=== PATIENT | male | born 1955 | race Caucasian/White ===

== ENCOUNTER → 2017-08-13 | Outpatient (CLI) | payer BC | END | disposition home or self-care (01) | LOC: RAD 12:03 | PROVIDERS: ATTEND Family Medicine | DX: M79.672 Pain in left foot (principal) ==

== ENCOUNTER 2019-10-29 15:28 | Emergency (ER) | payer BC ==
[~2019-10-29] VITALS: Ht 180.3 cm; Wt 88.8 kg
[2019-10-29] MEDS ORDERED: SODIUM CHLORIDE FLUSH 10ML SYR IVF ONE (16:30)
[2019-10-29 17:15] LABS: BASOPHILS # (AUTO) 0.02 x10^3/uL (0-0.1); BASOPHILS % (AUTO) 0 % (0-1); EOSINOPHILS # (AUTO) 0.15 x10^3/uL (0-0.4); EOSINOPHILS % (AUTO) 2 % (1-7); LYMPHOCYTES # (AUTO) 1.26 x10^3/uL (1-3.4); LYMPHOCYTES % (AUTO) 15 % (22-44); MD NO; MEAN CORPUSCULAR HEMOGLOBIN 31.9 pg (27.5-34.5); MEAN CORPUSCULAR HGB CONC 34.4 g/dL (33.2-36.2); MEAN CORPUSCULAR VOLUME 92.7 fL (81-97); MEAN PLATELET VOLUME 7.5 fL (7.4-10.4); MONOCYTES # (AUTO) 0.64 x10^3/uL (0.2-0.8); MONOCYTES % (AUTO) 8 % (2-9); NEUTROPHILS # (AUTO) 6.18 x10^3/uL (1.8-6.8); NEUTROPHILS % (AUTO) 75 % (42-75); PLATELET COUNT 183 x10^3/uL (130-400); RED BLOOD COUNT 4.78 x10^6/uL (4.38-5.82); RED CELL DISTRIBUTION WIDTH 13.2 % (9.4-14.8)
[2019-10-29 17:22] LABS: CALCIUM 9.1 mg/dL (8.5-10.1); CHLORIDE 105 mmol/L (98-107)
[2019-10-29 17:30] LABS: ALBUMIN 4.1 g/dL (3.4-5.0); ALKALINE PHOSPHATASE 104 U/L (45-117); ANION GAP 2 mmol/L (5-15); BILIRUBIN,TOTAL 0.5 mg/dL (0.2-1.0); CREATININE 1.21 mg/dL (0.7-1.3); TOTAL PROTEIN 7.2 g/dL (6.4-8.2); TROPONIN I < 0.015 ng/mL (0.000-0.045)
[2019-10-29 17:35] LABS: ALANINE AMINOTRANSFERASE 32 U/L (12-78)
--- NOTE | 2019-10-29 18:28 | NUR ---
RECHECKED VSS AT TRIAGE WHILE PT IS WAITING IN LOBBY STABLE
--- NOTE | 2019-10-29 20:13 | NUR ---
pt called to room from lobby
--- NOTE | 2019-10-29 20:32 | NUR ---
Patient presents to ER c/o left neck pain radiating into arm. Patient states the pain started last night and appeared to be resolved this morning, but came back after work today. Patient denies nausea, numbness, or tingling. Denies difficulty swallowing. No tracheal deviation noted. Patient has full range of motion. Patient is in NAD. Respirations even and unlabored.
[2019-10-29] MEDS ORDERED: OMNIPAQUE 350 MG/ML, 100ML BOTTLE ONE (21:30)
[2019-10-29 23:05] VITALS: BP 149/89
--- NOTE | 2019-10-29 23:30 | NUR ---
Patient/Caregiver given discharge instructions and they have confirmed that they understand the instructions. Patient ambulatory with steady gait.
== END 2019-10-29 23:31 | disposition home or self-care (01) ==
LOC: ED 23:20
DX: M54.2 Cervicalgia (principal); M79.602 Pain in left arm; I10 Essential (primary) hypertension; E78.00 Pure hypercholesterolemia, unspecified
CPT/HCPCS: 36415; 71045; 71275; 80053; 84484; 85025; 93005; 99284; Q9967

== ENCOUNTER 2019-11-19 14:43 | Inpatient (IN) | payer BC ==
[~2019-11-19] VITALS: Ht 180.3 cm; Wt 90.3 kg
--- NOTE | 2019-11-19 15:15 | NUR ---
LATE NOTE ENTRY FOR 1444 DUE TO PT CARE: Pt presents to ED by EMS from home with c/o LUQ abdominal pain (03/05) with sensation to have a bowel movement but is unable to. Last BM was approximately two days ago. Pain is described as sharp and is radiating to left neck and left scapula and is tender upon palpation. Pt has no abdominal distension. Pt received 150 mcg of Fentanyl and 4 mg of Zofran prior to arrival to ED. Pt denies n/v/d, cp, sob, syncope, or diaphoresis. EDRN performed EKG at bedside. Pt connected to electronic device monitor, NIBP cuff, and continous pulse ox monitor. Call light within reach. NADN. No needs expressed at this time.
[2019-11-19] MEDS ORDERED: SODIUM CHLORIDE FLUSH 10ML SYR IVF ONE (15:30)
[2019-11-19 15:46] LABS: ALANINE AMINOTRANSFERASE 32 U/L (12-78); ALBUMIN 3.8 g/dL (3.4-5.0); ANION GAP 2 mmol/L (5-15); CALCIUM 8.3 mg/dL (8.5-10.1); CHLORIDE 104 mmol/L (98-107); CREATININE 0.96 mg/dL (0.7-1.3)
[2019-11-19 15:51] LABS: ALKALINE PHOSPHATASE 89 U/L (45-117); BILIRUBIN,TOTAL 0.6 mg/dL (0.2-1.0); TOTAL PROTEIN 6.8 g/dL (6.4-8.2); TROPONIN I < 0.015 ng/mL (0.000-0.045)
--- NOTE | 2019-11-19 16:13 | NUR ---
Pt transported on [facility] from ED to CT.
[2019-11-19 16:18] LABS: BASOPHILS # (AUTO) 0.01 x10^3/uL (0-0.1); BASOPHILS % (AUTO) 0 % (0-1); EOSINOPHILS # (AUTO) 0.01 x10^3/uL (0-0.4); EOSINOPHILS % (AUTO) 0 % (1-7); LYMPHOCYTES # (AUTO) 0.62 x10^3/uL (1-3.4); LYMPHOCYTES % (AUTO) 7 % (22-44); MD NO; MEAN CORPUSCULAR HEMOGLOBIN 31.2 pg (27.5-34.5); MEAN CORPUSCULAR HGB CONC 33.8 g/dL (33.2-36.2); MEAN CORPUSCULAR VOLUME 92.3 fL (81-97); MEAN PLATELET VOLUME 7.6 fL (7.4-10.4); MONOCYTES # (AUTO) 0.56 x10^3/uL (0.2-0.8); MONOCYTES % (AUTO) 7 % (2-9); NEUTROPHILS # (AUTO) 7.29 x10^3/uL (1.8-6.8); NEUTROPHILS % (AUTO) 86 % (42-75); PLATELET COUNT 187 x10^3/uL (130-400); RED CELL DISTRIBUTION WIDTH 12.6 % (9.4-14.8)
[2019-11-19] MEDS ORDERED: OMNIPAQUE 350 MG/ML, 100ML BOTTLE ONE (16:26)
--- NOTE | 2019-11-19 16:27 | NUR ---
Pt back to room from CT. Pt last ate or drank at 11:45 today.
[2019-11-19] MEDS ORDERED: LOSA100T14 PO ×2 (16:36→21:01)
[2019-11-19] MEDS ORDERED: SUMA50TA4 PO (16:36)
[2019-11-19] MEDS ORDERED: Vitamin D3 PO (16:36)
[2019-11-19] MEDS ORDERED: HYDR-3241 PO (16:36)
[2019-11-19] MEDS ORDERED: PROM25TA10 PO (16:36)
[2019-11-19] MEDS ORDERED: ATOR20TA86 PO (16:36)
[2019-11-19] MEDS ORDERED: PIPERACILLIN/TAZO/PMX 3.375GM 50 ML ONE (16:41)
[2019-11-19] MEDS ORDERED: MORPHINE SULFATE 4 MG/ML, 1ML ONE (16:41)
[2019-11-19] MEDS ORDERED: SODIUM CHLORIDE 0.9% 1,000 ML IV ONE (16:59)
[2019-11-19] MEDS ORDERED: PIPERACILLIN/TAZO/PMX 3.375GM 50 ML IVPB ONE (17:00)
[2019-11-19] MEDS ORDERED: FAMOTIDINE 20 MG/2 ML ONE (17:00)
[2019-11-19] MEDS ORDERED: MORPHINE SULFATE 4 MG/ML, 1ML IVPush PRN (17:00)
--- NOTE | 2019-11-19 17:33 | NUR ---
Provided report to OR. All questions answered. OR tech to come transfer pt from ED to OR "soon".
--- NOTE | 2019-11-19 17:47 | NUR ---
OR staff at bedside taking patient to surgery. NADN. No needs expressed. Pt transfering to OR from ED and leving with all personal belongings.
[2019-11-19] MEDS ORDERED: EPINEPHRINE 1 MG/ML, 1ML ONE (18:25)
[2019-11-19] MEDS ORDERED: BUPIVACAINE/PF 0.5% ONE (18:25)
[2019-11-19] MEDS ORDERED: EPHEDRINE 50 MG/ML, 1ML ONE (19:07)
[2019-11-19] MEDS ORDERED: FENTANYL PF 250 MCG/5ML ONE (19:07)
[2019-11-19] MEDS ORDERED: ONDANSETRON 2MG/ML, 2ML ONE (20:02)
[2019-11-19] MEDS ORDERED: NEOSTIGMINE 1 MG/ML, 10ML ONE (20:02)
[2019-11-19] MEDS ORDERED: DEXAMETHASONE 4 MG/ML, 1ML ONE (20:02)
[2019-11-19] MEDS ORDERED: CEFAZOLIN 1,000 MG ONE (20:02)
[2019-11-19] MEDS ORDERED: PROPOFOL 10 MG/ML, 20ML ONE (20:02)
[2019-11-19] MEDS ORDERED: GLYCOPYRROLATE 0.2MG/1ML, 5ML ONE (20:02)
[2019-11-19] MEDS ORDERED: SUCCINYLCHOLINE 20 MG/ML, 10ML ONE (20:02)
[2019-11-19] MEDS ORDERED: ROCURONIUM 10MG/ML,5ML ONE (20:02)
[2019-11-19] MEDS: HYDROmorphone 2 MG/ML, 1ML IVPush PRN ×2 (20:50→21:10)
[2019-11-19] MEDS ORDERED: HYDROmorphone 1 MG/ML, 1ML INJ ONE (20:59)
[2019-11-19] MEDS ORDERED: HALOPERIDOL 5 MG/ML IV PRN (21:00)
[2019-11-19] MEDS ORDERED: LABETALOL 5MG/ML, 20ML IV PRN (21:00)
[2019-11-19] MEDS ORDERED: MEPERIDINE/PF 25MG/ML,1ML IVPush PRN (21:00)
[2019-11-19] MEDS ORDERED: FENTANYL PF 100 MCG/2ML IV PRN (21:00)
[2019-11-19] MEDS ORDERED: PROMETHAZINE 25 MG/ML, 1ML IV PRN (21:00)
[2019-11-19] MEDS ORDERED: hydrALAzine 20 MG/ML, 1ML IV PRN (21:00)
[2019-11-19] MEDS ORDERED: PROMETHAZINE 25 MG/ML, 1ML ONE (21:03)
[2019-11-19] MEDS ORDERED: PANTOPRAZOLE 80 MG in SODIUM CHLORIDE 0.9% 50 ML IV ONE (21:30)
[2019-11-19] MEDS ORDERED: ONDANSETRON 2MG/ML, 2ML IV PRN (22:30)
[2019-11-19] MEDS ORDERED: HYDROmorphone 2 MG/ML, 1ML IVPush PRN (23:00)
[2019-11-20 00:53] LABS: BASOPHILS % (AUTO) 0 % (0-1); EOSINOPHILS % (AUTO) 0 % (1-7); LYMPHOCYTES # (AUTO) 0.39 x10^3/uL (1-3.4); LYMPHOCYTES % (AUTO) 5 % (22-44); MD NO; MEAN CORPUSCULAR HEMOGLOBIN 31.7 pg (27.5-34.5); MEAN CORPUSCULAR HGB CONC 34.2 g/dL (33.2-36.2); MEAN CORPUSCULAR VOLUME 92.7 fL (81-97); MEAN PLATELET VOLUME 7.6 fL (7.4-10.4); MONOCYTES # (AUTO) 0.17 x10^3/uL (0.2-0.8); MONOCYTES % (AUTO) 2 % (2-9); NEUTROPHILS # (AUTO) 7.94 x10^3/uL (1.8-6.8); NEUTROPHILS % (AUTO) 93 % (42-75); PLATELET COUNT 159 x10^3/uL (130-400); RED BLOOD COUNT 4.47 x10^6/uL (4.38-5.82); RED CELL DISTRIBUTION WIDTH 12.8 % (9.4-14.8)
[2019-11-20 01:04] LABS: ALBUMIN 3.5 g/dL (3.4-5.0); ANION GAP 4 mmol/L (5-15); CALCIUM 8.2 mg/dL (8.5-10.1); CHLORIDE 107 mmol/L (98-107)
[2019-11-20 01:07] LABS: ALANINE AMINOTRANSFERASE 33 U/L (12-78); ALKALINE PHOSPHATASE 75 U/L (45-117); BILIRUBIN,TOTAL 0.6 mg/dL (0.2-1.0); CREATININE 0.89 mg/dL (0.7-1.3); TOTAL PROTEIN 6.4 g/dL (6.4-8.2)
[2019-11-20 02:26] VITALS: BP 131/73
[2019-11-20] MEDS: POTASSIUM CHLORIDE 20 MEQ in LACTATED RINGERS 1,000 ML IV SCH ×3 (03:20→23:10)
[2019-11-20 07:20] VITALS: BP 145/77
[2019-11-20] MEDS: ENOXAPARIN 40 MG/0.4 ML SQ SCH (07:38)
[2019-11-20] MEDS ORDERED: OXYcodone IR 5MG TABLET PO PRN (08:30)
[2019-11-20] MEDS: ACETAMINOPHEN 325 MG TABLET PO SCH ×3 (10:32→23:10)
[2019-11-20 13:06] VITALS: BP 144/77
[2019-11-20] MEDS: KETOROLAC 30 MG/1 ML IV PRN (15:34)
[2019-11-20 21:00] VITALS: BP 146/76
[2019-11-21 03:11] VITALS: BP 135/83
[2019-11-21] MEDS: ACETAMINOPHEN 325 MG TABLET PO SCH ×3 (05:15→18:28)
[2019-11-21] MEDS: ENOXAPARIN 40 MG/0.4 ML SQ SCH (05:15)
[2019-11-21 08:38] VITALS: BP 108/64
[2019-11-21] MEDS: LOSARTAN 100 MG TAB PO SCH (08:53)
[2019-11-21] MEDS: ATORVASTATIN 20 MG TABLET PO SCH (08:53)
[2019-11-21] MEDS: KETOROLAC 30 MG/1 ML IV PRN (13:31)
[2019-11-21 14:00] VITALS: BP 129/80
[2019-11-21 16:01] VITALS: BP 129/80
[2019-11-21 20:00] VITALS: BP 133/74
[2019-11-22] MEDS: ACETAMINOPHEN 325 MG TABLET PO SCH ×3 (00:19→12:30)
[2019-11-22 00:53] VITALS: BP 137/81
[2019-11-22] MEDS: ENOXAPARIN 40 MG/0.4 ML SQ SCH (06:15)
[2019-11-22 07:32] VITALS: BP 154/79
[2019-11-22] MEDS: ATORVASTATIN 20 MG TABLET PO SCH (09:48)
[2019-11-22] MEDS: LOSARTAN 100 MG TAB PO SCH (09:49)
[2019-11-22 12:14] VITALS: BP 150/88
[2019-11-22] MEDS ORDERED: OXYC5TAB3 PO (17:45)
[2019-11-22] MEDS ORDERED: ACET-2065 PO (17:46)
[2019-11-22] MEDS ORDERED: DOCU-131 PO (17:47)
[2019-11-22] MEDS ORDERED: OMEP40CA42 PO (17:47)
== END 2019-11-22 18:11 | disposition home or self-care (01) | DRG 328 ==
LOC: OR 17:00 → EDIP 18:20 → 4NE 21:45
PROVIDERS: ADMIT Student in an Organized Health Care Education/Training Program; ATTEND Student in an Organized Health Care Education/Training Program
PROC: 0DU647Z Supplement Stomach with Autologous Tissue Substitute, Percutaneous Endoscopic Approach (ICD-10-PCS; principal; 2019-11-20)
PROC: 0DB68ZX Excision of Stomach, Via Natural or Artificial Opening Endoscopic, Diagnostic (ICD-10-PCS; 2019-11-20)
DX: K25.5 Chronic or unspecified gastric ulcer with perforation (principal); E78.00 Pure hypercholesterolemia, unspecified; I10 Essential (primary) hypertension
CPT/HCPCS: 36415; 96374; 96375; 99291; S0020; 71045; 74177; 80053; 83690; 84484; 85025; 88305; 93005; G0378; J0171; J0690; J1100; J1170; J1650; J1885; J2405; J2543; J2550; J2704; J2710; J3010; J3480; Q9967; C1765; C9113; J0330; J2270; J7030; J7120